=== PATIENT | male | born 1995 | race Caucasian/White ===

== ENCOUNTER 2017-01-10 21:09 | Emergency (ER) | payer BC, MEDICAID ==
[~2017-01-10] VITALS: Ht 172.7 cm; Wt 79.0 kg
[~2017-01-10 21:09] MED LIST: HYDR-3533 PO
[2017-01-10 21:12] VITALS: BP 119/65; PULSE 79; RESP 18; TEMP 98.4; O2SAT 97
--- NOTE | 2017-01-10 22:03 | PD ---
HPI Chief Complaint: Skin Problem Time Seen by Provider: 21:30 Travel History International Travel<30 days: No Contact w/Intl Traveler<30days: No Traveled to known affect area: No History of Present Illness HPI 21 year-old male presents to the emergency room for evaluation of sunburn. Patient got a sunburn 3 days ago and went to beach again today. He wore sunscreen and t-shirt today. States he came in because when he went in the water, the sunburn started itching really bad. He came straight to the emergency room and has not taken anything for his symptoms. Last tetanus was less than 10 years ago. History Past Medical Histgory Medical History: Denies Significant Hx Tetanus Vaccination: > 5 Years Past Surgical History Surgical History: No Previous Surgery Social History Alcohol Use: Yes Tobacco Use: Yes Allergies-Medications (Allergen,Severity, Reaction): Coded Allergies: Fire Ant (Verified Allergy, Severe, ANAPHALACTIC, 01/10/17) Reported Meds & Prescriptions Reported Meds & Active Scripts Active No Active Prescriptions or Reported Medications Review of Systems Except as stated in HPI: all other systems reviewed are Neg Physical Exam Narrative GENERAL: Well-developed male in no acute distress. SKIN: Warm and dry. Erythematous, blanching sunburn on shoulders, chest, and upper back. Mild blisters on shoulders. HEAD: Normocephalic. EYES: No scleral icterus. No injection or drainage. NECK: Supple, trachea midline. No JVD or lymphadenopathy. CARDIOVASCULAR: Regular rate and rhythm without murmurs, gallops, or rubs. RESPIRATORY: Breath sounds equal bilaterally. No accessory muscle use. Data Data Last Documented VS Vital Signs Date Time Temp Pulse Resp B/P Pulse Ox O2 Delivery O2 Flow Rate FiO2 01/10/17 21:12 98.4 79 18 119/65 97 MDM Medical Screen Exam Complete: Yes Emergency Medical Condition: No Differential Diagnosis sunburn Narrative Course 21-year-old male presents to the emergency room for evaluation of a sunburn. Patient got a sunburn 3 days ago and it exacerbated at the beach today. He states it became really itchy when he went into the water. He has not applied anything to his skin. Physical exam reveals moderate erythema of the shoulders , chest, and upper back. It is blanchable. There are slight blisters on bilateral shoulders that are open to air. Patient was given wound care instructions and told to use [id number] calamine lotion and/or aloe. He was told to follow up with a primary care physician and return for worsening symptoms. There are no urgent or emergent medical conditions at this time. A medical screening exam was performed: At the time of evaluation the presenting medical condition was determined not to be of an emergent nature. The patient was given the option of receiving additional care, but declined. Patient was given options for additional community resources from which to obtain care. The Patient Has Been advised to seek medical attention for their presenting complaint. The patient has been advised to return to the ER at any time if an emergent condition develops. Primary Impression: Encounter for medical screening examination Scripts No Active Prescriptions or Reported Meds Disposition: 01 DISCHARGE HOME Condition: Stable Ann Garnica January 10, 2017 22:03
== END 2017-01-10 21:43 | disposition left against medical advice (07) ==
LOC: PHEFT 21:09
DX: L55.9 Sunburn, unspecified (principal)
CPT/HCPCS: 99281